=== PATIENT | male | born 1990 | race Caucasian/White ===

== ENCOUNTER 2021-09-20 00:31 | Emergency (ER) | payer OTHER ==
[2021-09-20] MEDS ORDERED: IBUPROFEN 400 MG TABLET (FP) PO ONE ×2 (00:42→00:45)
[2021-09-20 00:45] VITALS: BP 123/67; PULSE 95; TEMP 99.5; BMI 36.2
== END 2021-09-20 01:15 | disposition home or self-care (01) ==
LOC: FER 00:31
DX: U07.1 COVID-19 (principal)
CPT/HCPCS: 99283-25